=== PATIENT | female | born 1975 | race Native Hawaiian/Other Pacific Islander ===

== ENCOUNTER 2022-06-18 18:08 | Emergency (ER) | payer OTHER ==
[~2022-06-18] VITALS: Ht 165.1 cm; Wt 66.2 kg
[2022-06-18 18:08] VITALS: BP 113/66; TEMP 98.3
[2022-06-18 18:27] LABS: PLATELET COUNT 274 K/uL (152-353)
[2022-06-18 18:46] LABS: POTASSIUM 3.6 mmol/L (3.6-5.2)
[2022-06-18] MEDS ORDERED: FAMO20TA4 PO (21:11)
[2022-06-18] MEDS ORDERED: EUTHYROX200 MCG PO (21:13)
[2022-06-18] MEDS ORDERED: DIVA125C PO (21:16)
[2022-06-18] MEDS ORDERED: SEROQUEL50 MG PO (21:19)
[2022-06-18] MEDS ORDERED: HALO5INJ3 IM (21:22)
[2022-06-18] MEDS ORDERED: [UNRECOGNIZED DRUG - OTHER] TOP (21:26)
== END 2022-06-18 20:00 | disposition other institution (70) ==
LOC: ED 18:08
PROVIDERS: Family Medicine
DX: F28 Other psychotic disorder not due to a substance or known physiological condition (principal); R46.89 Other symptoms and signs involving appearance and behavior; Z11.52 Encounter for screening for COVID-19; Z04.6 Encounter for general psychiatric examination, requested by authority
CPT/HCPCS: 36415; 80053; 81002; 85027; 87635; 93005; 99283; U0003